=== PATIENT | male | born 1935 | race Caucasian/White ===

== ENCOUNTER → 2016-10-16 | Outpatient (CLI) | payer OTHER, BC ==
[~2016-10-16] MED LIST: ADVAIR 250/501 DISK IH; ALBUTEROL2.5 MG/3 M IH; ASPIR 8181 M1 PO; ASPIRIN325 MG PO; ATENOLOL25 MG PO; ATORVASTATIN CA10 MG PO; AUGMENTIN500 MG PO; AUGMENTIN875 MG PO; AZITHROMYCIN250 MG PO; Aspirin E.C. PO; BACLOFEN10 MG PO; CEFTIN500 MG PO; CEFUROXIME500 MG PO; CLEOCIN300 MG PO; COUMADIN2 MG PO; COUMADIN5 MG PO; COUMADIN6 MG PO; DUONEB 2.5-0.5 M3 ML AEROSOL; FAMOTIDINE20 MG PO; FLOMAX0.4 MG PO; JANTOVEN6 MG PO; LIPITOR20 MG PO; NEOMYCIN-POLYMY10 ML BOTH EARS; PANTOPRAZOLE SO40 MG PO; PERCOCET 5/31 TABLET PO; SPIRIVA1 INHALATI IH; TAMSULOSIN HCL0.4 MG PO; TOPROL XL25 MG PO; ULTRAM50 MG PO; VITAMIN D1000 INTUN PO; XARELTO20 MG PO
== END | disposition home or self-care (01) ==
LOC: AMB 14:05
PROC: 0D568ZZ Destruction of Stomach, Via Natural or Artificial Opening Endoscopic (ICD-10-PCS; principal; 2016-10-16)
DX: Q27.33 Arteriovenous malformation of digestive system vessel (principal); K29.60 Other gastritis without bleeding; K22.2 Esophageal obstruction; K25.9 Gastric ulcer, unspecified as acute or chronic, without hemorrhage or perforation; K44.9 Diaphragmatic hernia without obstruction or gangrene; K21.9 Gastro-esophageal reflux disease without esophagitis; D50.9 Iron deficiency anemia, unspecified; Z79.82 Long term (current) use of aspirin; I10 Essential (primary) hypertension; I73.9 Peripheral vascular disease, unspecified; E78.5 Hyperlipidemia, unspecified; Z87.891 Personal history of nicotine dependence